=== PATIENT | female | born 1940 | race Caucasian/White ===

== ENCOUNTER 2020-08-24 08:32 | Day surgery (SDC) | payer OTHER, BC ==
[2020-08-18 16:20] VITALS: BMI 30.2
[2020-08-24] MEDS ORDERED: BUPIVACAINE HCL 100 ML ONE (11:30)
[2020-08-24] MEDS ORDERED: MORPHINE SULFATE 10 MG/1 ML *VIAL ONE (11:38)
[2020-08-24] MEDS ORDERED: MIDAZOLAM HCL 2 MG/2 ML SINGLE DOSE VIAL ONE (11:46)
[2020-08-24] MEDS ORDERED: ONDANSETRON 4 MG/2 ML VIAL IVPUSH PRN (12:37)
[2020-08-24] MEDS ORDERED: LACTATED RINGERS SOLUTION 1,000 ML IV SCH (12:45)
[2020-08-24 14:45] VITALS: PULSE 59; TEMP 97.1
[2020-08-24] MEDS ORDERED: MAG HYDROX/AL HYDROX/SIMETH 30 ML UNIT-DOSE CUP PO ONE (14:45)
[2020-08-24 15:21] VITALS: BP 132/72
== END 2020-08-24 15:45 | disposition home or self-care (01) ==
LOC: FASU 08:32
PROVIDERS: ATTEND Orthopaedic Surgery
PROC: 0SBC4ZZ Excision of Right Knee Joint, Percutaneous Endoscopic Approach (ICD-10-PCS; 2020-08-24)
PROC: 0SBC4ZZ Excision of Right Knee Joint, Percutaneous Endoscopic Approach (ICD-10-PCS; principal; 2020-08-24 12:05)
DX: M23.221 Derangement of posterior horn of medial meniscus due to old tear or injury, right knee (principal); M23.251 Derangement of posterior horn of lateral meniscus due to old tear or injury, right knee; M25.661 Stiffness of right knee, not elsewhere classified; M23.41 Loose body in knee, right knee; M67.261 Synovial hypertrophy, not elsewhere classified, right lower leg; M94.261 Chondromalacia, right knee
CPT/HCPCS: 29880; G0289; 88304-TC; 94760